=== PATIENT | female | born 1940 | race Caucasian/White ===

== ENCOUNTER 2018-08-04 12:27 | Emergency (ER) | payer MEDICAID ==
[~2018-08-04] VITALS: Ht 147.3 cm; Wt 60.8 kg
[2018-08-04] MEDS ORDERED: ACETAMINOPHEN 325MG TABLET PO ONE (15:45)
[2018-08-04 17:41] VITALS: BP 130/62
== END 2018-08-04 18:02 | disposition home or self-care (01) ==
LOC: ER 12:27
DX: M25.522 Pain in left elbow (principal); I10 Essential (primary) hypertension
CPT/HCPCS: 36415; 73080; 84550; 99284; A4565